=== PATIENT | male | born 1950 | race African-American/Black ===

== ENCOUNTER 2017-04-15 10:06 | Emergency (ER) | payer OTHER ==
[2017-04-15 10:12] VITALS: BP 139/90; PULSE 84; TEMP 98.2; BMI 27.1
[2017-04-15] MEDS ORDERED: ALBUTEROL SO4 2.5/IPRATROPIUM 0.5 INH SOL 3 ML VIAL.NEB. NEB ONE (10:29)
[2017-04-15] MEDS ORDERED: predniSONE 20 MG TABLET (UD) ONE (10:29)
--- NOTE | 2017-04-15 10:31 | PDOC ---
History of Present Illness - General Chief Complaint: Cold Symptoms Stated Complaint: RESPIRATORY Time Seen by Provider: 04/15/17 10:22 History Source: Patient Exam Limitations: No Limitations - History of Present Illness Initial Comments: 04/15/17 10:31 Patient states had past 4 days of worsening cough, and asthmatic symptoms. Proventil inhaler as run out, and has a friend using his compressor. suffers from severe asthma but has not had any symptoms for the past 3 years. is felt feverish, is coughing up thick green phlegm and now has pleuritic chest pain. Timing/Duration: reports: unsure, getting worse Severity: Yes: mild, moderate Presenting Symptoms: Yes: fever, trouble breathing, persistent cough, sore throat Past History - Travel Traveled outside of the country in the last 30 days: No Close contact w/someone who was outside of country & ill: No - Past History Allergies/Adverse Reactions: Allergies No Known Drug Allergies Allergy (Verified 04/15/17 10:10) RUBBER Allergy (Mild, Uncoded 04/15/17 10:10) Rash Home Medications: Ambulatory Orders Budesonide/Formeterol Fumarate [SYMBICORT 160/4.5mcg -] 2 inh IH BID #0 inhaler 06/13/13 Levothyroxine [Synthroid -] 150 mcg PO DAILY #0 tablet 06/13/13 Lisinopril/Hydrochlorothiazide [Lisinopril-Hctz 20-12.5 mg Tab] 1 each PO DAILY #0 tablet 06/13/13 Amlodipine Besylate 10 mg PO DAILY 02/02/16 Aspirin [ASA -] 325 mg PO DAILY tablet 02/03/16 Atorvastatin Ca [Lipitor] 20 mg PO HS tablet 02/03/16 Heparin Infusion - 500 ml IVPB TITR infus.bag 02/03/16 Metoprolol Tartrate [Lopressor -] 25 mg PO BID tablet 02/03/16 Albuterol 0.083% Nebulizer Gabriela [Ventolin 0.083% Nebulizer Soln -] 1 neb NEB Q4H PRN #30 vial 04/15/17 Azithromycin [Zithromax -] 250 mg PO UTDICT #6 tab 04/15/17 Prednisone [Deltasone -] 20 mg PO BID #8 tablet 04/15/17 - Social History Smoking Status: Never smoked Review of Systems - Review of Systems Able to Perform ROS?: Yes Is the patient limited Vietnamese proficient: Yes Constitutional: Yes: Symptoms Reported, See HPI, Fever, Loss of Appetite, Malaise HEENTM: Yes: Symptoms Reported, See HPI, Nose Congestion Respiratory: Yes: Symptoms reported, See HPI, Cough, Shortness of Breath, Wheezing Cardiac (ROS): No: Symptoms Reported ABD/GI: No: Symptoms Reported : No: Symptoms Reported All Other Systems: Reviewed and Negative *Physical Exam - Vital Signs Last Vital Signs Temp Pulse Resp BP Pulse Ox 98.2 F 84 18 139/90 100 04/15/17 10:10 04/15/17 10:10 04/15/17 10:10 04/15/17 10:10 04/15/17 10:10 - Physical Exam General Appearance: Yes: Nourished, Appropriately Dressed, Apparent Distress, Mild Distress, Moderate Distress HEENT: positive: MIKKI, TMs Normal (congested but landmarks easily visualized), Pharynx Normal, Nasal Congestion, Rhinorrhea, Sinus Tenderness Neck: positive: Supple. negative: Tender, Lymphadenopathy (R), Lymphadenopathy (L) Respiratory/Chest: positive: Wheezing (course inspiratory and expiratory plants with wheezes). negative: Lungs Clear, Normal Breath Sounds, Respiratory Distress Gastrointestinal/Abdominal: positive: Normal Bowel Sounds, Soft. negative: Tender Musculoskeletal: positive: Normal Inspection Extremity: positive: Normal Capillary Refill, Normal Inspection, Normal Range of Motion, Tender Integumentary: positive: Normal Color, Dry, Warm, Pale Neurologic: positive: jewelry polisher II-XII NML intact, Fully Oriented, Alert, Normal Mood/ Affect, Normal Response, Motor Strength 5/5 Progress Note - Progress Note Progress Note: Asthma exacerbation with URI, treated with DuoNeb and prednisone and reevaluate Medical Decision Making - Medical Decision Making Much improved after DuoNeb and prednisone. Ready for discharge *DC/Admit/Observation/Transfer Diagnosis at time of Disposition: Bronchitis - Discharge Dispostion Disposition: HOME Condition at time of disposition: Stable Admit: No - Prescriptions Prescriptions: Albuterol 0.083% Nebulizer Gabriela [Ventolin 0.083% Nebulizer Soln -] 1 neb NEB Q4H PRN #30 vial PRN Reason: Cough Azithromycin [Zithromax -] 250 mg PO UTDICT #6 tab Prednisone [Deltasone -] 20 mg PO BID #8 tablet - Referrals Referrals: Jayesh Deras MD [Primary Care Provider] - - Patient Instructions Printed Discharge Instructions: DI for Acute Bronchitis Additional Instructions: Rest, drink lots of fluids: Teas, water, soups, Pedialyte Saltwater gargles Steamy showers/seem to face break up mucus Avoid contact with others until fevers and cough resolved Lots of handwashing and good hygiene Continue [id number] medications for symptomatic relief Tylenol or Motrin for fever and pain Continue albuterol nebulizers every 4-6 hours for the next 2 days then as needed for continued cough Prednisone as directed until completed Azithromycin as directed Followup with private physician in one to 2 days Return to emergency department / pediatric hospital for worsened symptoms, fevers, dehydration - Post Discharge Activity Forms/Work/School Notes: Back to Work
== END 2017-04-15 11:43 | disposition home or self-care (01) ==
LOC: JERFT 10:06
DX: J45.901 Unspecified asthma with (acute) exacerbation (principal); J06.9 Acute upper respiratory infection, unspecified
CPT/HCPCS: 99281-25

== ENCOUNTER → 2018-01-20 | Emergency (ER) | payer OTHER ==
[2018-01-20 17:59] VITALS: BP 150/82; PULSE 96; TEMP 99.5; BMI 29.8
== END | disposition left against medical advice (07) ==
LOC: JERFT 17:46
DX: Z53.21 Procedure and treatment not carried out due to patient leaving prior to being seen by health care provider (principal)
CPT/HCPCS: 99281-25

== ENCOUNTER 2018-02-20 08:51 | Day surgery (SDC) | payer OTHER ==
[2018-02-19 17:30] VITALS: BMI 30.5
--- NOTE | 2018-02-20 09:57 | HP ---
Satellite [facility] - Chief Complaint Chief Complaint: left elbow pain/swelling - Past Medical History Allergies/Adverse Reactions: Allergies Allergy/AdvReac Type Severity Reaction Status Date / Time latex Allergy "rash" Verified 02/20/18 09:31 No Known Drug Allergies Allergy Verified 02/20/18 09:31 RUBBER Allergy Mild Rash Uncoded 02/20/18 09:31 CERTIFIED PHYSICIAN'S ASSISTANT: Yes: TIA Cardiovascular: Yes: HTN, Hyperlipdemia - Current Medications Current Medications: Home Medications Medication Instructions Recorded Levothyroxine [Synthroid -] 150 mcg PO DAILY #0 tablet 06/13/13 Lisinopril/Hydrochlorothiazide 1 each PO DAILY #0 tablet 06/13/13 [Lisinopril-Hctz 20-12.5 mg Tab] Amlodipine Besylate 10 mg PO DAILY 02/02/16 Atorvastatin Ca [Lipitor] 20 mg PO HS tablet 02/03/16 Budesonide/Formeterol Fumarate 1 inh PO BID 02/19/18 [SYMBICORT 80/4.5mcg -] Ticagrelor [Brilinta -] 90 mg PO DAILY 02/19/18 Hydrocodone/Acetaminophen [[place] 1 each PO Q6H PRN #20 tablet MDD 4 02/20/18 5-325 Tablet] Satellite Physical Exam - Physical Examination Vital Signs: Vital Signs Period Temp Pulse Resp BP Sys/Rubin Pulse Ox Last 24 Hr 98.3 F 79 18 134/76 99 General Appearance: Well Nourished, Well Developed, Alert & Oriented x3 ENT: Clear Lung: Normal air movement Heart: Regular rate & rhythm Extremities: Other (left elbow- + swelling olecranon bursa, + ttp, good rom, nvi ) Neurological: Intact, Alert, Oriented Satellite Impression/Plan - Impression/Plan Impression: left elbow oleranon bursitis Operative Procedure: left elbow olecranon bursectomy Date to be Performed: 02/20/18
[2018-02-20] MEDS ORDERED: PROPOFOL 20 ML ONE ×2 (12:06)
[2018-02-20] MEDS ORDERED: MIDAZOLAM HCL 2 MG/2 ML SINGLE DOSE VIAL ONE (12:06)
[2018-02-20] MEDS ORDERED: BUPIVACAINE HCL/PF 0.5% (5MG/ML) 10 ML VIAL ONE (12:39)
[2018-02-20] MEDS ORDERED: LIDOCAINE HCL 1%, 10 MG/ML (20ML VIAL) ONE (12:39)
--- NOTE | 2018-02-20 13:14 | OP ---
Operative Note - Note: Operative Date: 02/20/18 Pre-Operative Diagnosis: left olecranon bursitis, bone spur Operation: left olecranon bursectomy, excision bone spur Post-Operative Diagnosis: Same as Pre-op Surgeon: Primo Thompson Anesthesiologist/DRILL PRESS TENDER: Chela Atkinson Anesthesia: General, Local Specimens Removed: bursa, bone Estimated Blood Loss (mls): 0 Drains, Volume Out (mls): 0 Blood Volume Replaced (mls): 0 Fluid Volume Replaced (mls): 500 Operative Report Dictated: Yes
[2018-02-20] MEDS ORDERED: ONDANSETRON 4 MG/2 ML VIAL IVPUSH PRN (13:16)
[2018-02-20] MEDS ORDERED: LIDOCAINE HCL 1%, 10 MG/ML (20ML VIAL) INF ONE (13:19)
[2018-02-20] MEDS ORDERED: BUPIVACAINE HCL/PF 0.5% (5MG/ML) 10 ML VIAL IJ ONE (13:20)
[2018-02-20] MEDS ORDERED: LACTATED RINGERS SOLUTION 1,000 ML IV SCH (13:30)
[2018-02-20] MEDS ORDERED: oxyCODONE HCL 5 MG TABLET PO PRN ×2 (14:07)
--- NOTE | 2018-02-20 14:14 | OP ---
DATE OF OPERATION: 02/20/2018 PREOPERATIVE DIAGNOSES: Left olecranon bursitis and olecranon osteophyte. POSTOPERATIVE DIAGNOSES: Left olecranon bursitis and olecranon osteophyte. PROCEDURE: Left olecranon bursectomy and excision of osteophyte. SURGEON: Primo Thompson MD INSIDE SALES MANAGER: None. BRANCH ACCOUNT EXECUTIVE: Radhika Siegel CRNA ANESTHESIA: LMA anesthesia, local injection, 20 mL of 0.5% Marcaine and 1% lidocaine mix. DRAINS: None. COMPLICATIONS: None. SPECIMENS: 1. Left olecranon bursa. 2. Left olecranon bone. BLOOD LOSS: None. BLOOD GIVEN: None. FLUID REPLACEMENT: 700 mL. INDICATION FOR PROCEDURE: The patient is a 67-year-old male with the preoperative diagnosis of recurrent painful swollen left olecranon bursitis and an olecranon bone spur. After understanding the potential risks, complications, alternatives and benefits of surgical versus nonsurgical treatment the patient elected to undergo this procedure. Patient was brought to the operating room. Peripheral IV placed and IV sedation given. Ancef 1 g IV was given. LMA anesthesia was induced. Patient was placed in the sloppy lateral position. The left upper extremity was prepped and draped in sterile fashion, elevated, exsanguinated with an Esmarch bandage and tourniquet inflated to 250 mmHg. A curvilinear incision was marked out over the left olecranon bursa taking great care to go more lateral and stay away from the cubital tunnel. A 0.5% Marcaine and lidocaine 1% mix, 20 mL, was injected in and around the surgical incision. The incision was made with a No. 15 scalpel blade. Subcutaneous hemostasis achieved with a Bovie cautery. Dissection done down to the left olecranon bursa which was quite swollen and full of blood. A circumferential dissection was done around the olecranon bursa. It was excised in its entirety and passed off the field. Next it was seen at the base of the olecranon bursa the patient did have a sharp osteophyte coming off of the olecranon itself. Therefore, a 1/4-inch osteotome was used to take off this bone spur. The bone was passed off the field as specimen, bone spur, left olecranon, and I then used a rasp to fine tune it. Irrigation was used. I then used the rasp again. Again irrigation was used. I then was able to see and feel with my finger that there were no bony prominences, no sharp points and overall it felt quite smooth. The area was copiously irrigated and washed out again. Vicryl 2-0 used to close the deep dermal layer. Final skin reapproximation was done with a row of candace. The area was then washed and dried, covered with Xeroform gauze, 4 x 4 gauze, Webril and a posterior 6-inch Ortho-Glass splint was applied holding the elbow in neutral 90 degrees. This was then wrapped with 3 Liban bandages. Tourniquet was taken down after a total tourniquet time of 26 minutes. There were no complications during the case. The patient tolerated the procedure well and was brought to the ambulatory recovery room in stable condition. Janny [id number]
[2018-02-20] MEDS ORDERED: oxyCODONE HCL 5 MG TABLET ONE (15:27)
[2018-02-20 17:10] VITALS: BP 130/70; PULSE 75; TEMP 98
--- NOTE | 2018-02-22 12:58 | PATH ---
Surgical Pathology Report Patient Name: JOSE MARIA JOSHI [facility]. Rec. #: [id number] /Age/Gender: 1950 (Age: 67) / M Account: [id number] Location: [facility] SURGICAL Taken: 02/20/2018 Received: 02/20/2018 Reported: 02/22/2018 Physicians: Janny Quiroz M.D. Specimen(s) Received BONE AND TISSUE Clinical History Bursitis left elbow Final Diagnosis BONE/TISSUE OLECRANON BURSA, EXCISION: BURSAL WALL WITH OLD AND RECENT HEMORRHAGE, FIBROSIS, CHRONIC INFLAMMATION, AND FIBRINOUS EXUDATES, CONSISTENT WITH BURSITIS. SEPARATE PIECES OF BONE WITH NO SIGNIFICANT PATHOLOGIC CHANGE. Electronically Signed Anna Gracia M.D. Gross Description Received in formalin, labeled "bone/tissue olecranon bursa" are 2 irregular portions of bone tissue (2 x 1 x 0.2cm) and a portion of soft tissue (4.5 x 3.5 x 1cm). Serial sections of the soft tissue reveal a cyst measuring 2.5cm in greatest dimension. The inner surface of the cyst lining shows focal hemorrhage. The entire bone and telemarketing representative sections from the soft tissue are submitted in 4 cassettes. 1. Bone after decalcification. 2 to 4: soft tissue
== END 2018-02-20 17:10 | disposition home or self-care (01) ==
LOC: JASU-SURG 08:51
PROVIDERS: ATTEND Orthopaedic Surgery
PROC: 0MT40ZZ Resection of Left Elbow Bursa and Ligament, Open Approach (ICD-10-PCS; principal; 2018-02-20 10:30)
DX: M71.9 Bursopathy, unspecified (principal); M25.722 Osteophyte, left elbow
CPT/HCPCS: 88304-TC; 88311-TC; 94760

== ENCOUNTER 2018-12-04 15:21 | Emergency (ER) | payer OTHER ==
[2018-12-04] MEDS ORDERED: DIPHTH,PERTUSS(ACELL),TET 0.5 ML DISP.SYRIN IM ONE ×2 (15:31→16:23)
--- NOTE | 2018-12-04 15:31 | PDOC ---
Rapid Medical Evaluation Time Seen by Provider: 12/04/18 15:29 Medical Evaluation: Allergies Allergy/AdvReac Type Severity Reaction Status Date / Time latex Allergy "rash" Verified 02/20/18 09:31 No Known Drug Allergies Allergy Verified 02/20/18 09:31 RUBBER Allergy Mild Rash Uncoded 02/20/18 09:31 12/04/18 15:29 HPI: Dog bite R leg PE: No gross deficits ORDES: X-rays and tetanus Discharge Disposition - Diagnosis Dog bite - Referrals - Patient Instructions - Post Discharge Activity
[2018-12-04 15:34] VITALS: BP 132/79; PULSE 88; TEMP 98.3; BMI 28.5
== END 2018-12-04 20:05 ==
LOC: JERFT 15:21
PROC: 3E0234Z Introduction of Serum, Toxoid and Vaccine into Muscle, Percutaneous Approach (ICD-10-PCS; principal; 2018-12-04)
DX: S81.851A Open bite, right lower leg, initial encounter (principal); W54.0XXA Bitten by dog, initial encounter; Y93.89 Activity, other specified; Y92.89 Other specified places as the place of occurrence of the external cause
CPT/HCPCS: 90715; 99281-25